=== PATIENT | male | born 1980 | race Hispanic/Latino ===

== ENCOUNTER 2017-01-01 19:32 | Emergency (ER) | payer OTHER ==
[~2017-01-01] VITALS: Ht 185.4 cm; Wt 136.4 kg
[~2017-01-01 19:32] MED LIST: CHLO473M13 MM; CLIN300C3 PO; NOMED
[2017-01-01 19:42] VITALS: BP 138/89; PULSE 102; RESP 18; O2SAT 96
[2017-01-01] MEDS ORDERED: Ketorolac 30 mg/mL 2 mL Inj IM ONE (20:20)
--- NOTE | 2017-01-01 20:24 | ED.REPORT ---
HPI-Back Pain Under 40 Date of Service Jan 01, 2017 ED Provider: Bharat Abdalla PA-C Derik is an otherwise healthy 36-year-old male with chief complaint of back pain. He states that he woke up approximately one week ago with pain in the left side of his lower back which describes as "like little knives" he reports the pain has been worsening steadily since then. He admits to diarrhea and urinary frequency but denies hematuria, dysuria. Denies vigorous exercise, trauma. Denies fever, chills, malaise, abdominal pain, vomiting, numbness/ tingling, melena. Denies saddle anesthesia, loss of bowel/bladder control. Denies immunosuppression, cancer, recent surgery, recent infection. Nursing Notes Stated Complaint: LOWER BACK PAIN Chief Complaint: Back Pain or Injury Nursing Notes Reviewed: Yes Allergies: Coded Allergies: Pork (Verified Allergy, Severe, Hives, 07/02/16) Scheduled Acetaminophen (Acetaminophen) 500 Mg/5 Ml Liquid 1,000 MG PO QID Chlorhexidine Gluconate (Chlorhexidine Gluconate) 473 Ml Mouthwash 10 ML MM BID Clindamycin HCl (Cleocin) 300 Mg Capsule 300 MG PO QID Scheduled PRN Ibuprofen (Ibuprofen) 800 Mg Tablet 800 MG PO QID PRN PRN For Pain Miscellaneous Medications No Historical Medication (No Historical Medication) Ea General Time Seen by MD: 19:58 Chief Complaint Back pain Sudden in Onset?: No Past Medical History Past Medical History depression PTSD anxiety Prior visit for foreign body in ear Past Surgical History perirectal abscess Smoking History Current Every Day Smoker Social History Alcohol Use: 1-3 per week Drug Use: Denies drug use Other Social History: Local resident Ambulatory Status Independent Review of Systems General: Denies fever, chills, malaise. HEENT: Denies congestion, headache, sore throat. Respiratory: Denies dyspnea, cough, shortness of breath, wheezing. Cardiovascular: Denies chest pain, palpitations. Gastrointestinal: Admits diarrhea, Denies vomiting, abdominal pain. Genitourinary: Admits frequency, denies urgency, dysuria, hematuria. Otherwise as noted in HPI. Physical Exam General: Well appearing, well developed, obese, no acute distress. Head: Atraumatic, normocephalic. Eyes: No scleral icterus or injection. No discharge. Vision grossly intact. ENT: Voice clear, hearing grossly intact. Respiratory: Regular rate and rhythm. Breath sounds present, clear to auscultation and equal bilaterally. Cardiovascular: Regular rate and rhythm, without murmur, gallop or rub. No pedal edema. Gastrointestinal: Obese flat and non-tender without guarding or rebound. Bowel sounds normoactive. Skin: Warm and dry. Back: Normal to inspection, mild left-sided CVA tenderness. Neurological: Normal gait, toe walk, heel walk, Romberg. Hip flexion, knee extension, ankle dorsiflexion and plantarflexion strength 5/5 B/L. Patellar and Achilles reflexes equal B/L. Sensation to sharp touch intact at medial leg, dorsal foot and lateral foot B/L. negative straight leg raise, negative cross straight leg raise. Psychological: Alert and oriented. Speech appropriate, linear and logical. Behavior appropriate. Initial Vital Signs Vital Signs (First) Date Time Temp Pulse Resp B/P Pulse Ox O2 Delivery O2 Flow Rate FiO2 01/01/17 19:42 37.1 102 18 138/89 96 Room Air Initial VS: Reviewed, Vital signs normal Interpretation & Diagnostics Lab Results Interpretation Test 01/01/17 20:47 Urine Color Yellow (YELLOW) Urine Appearance Clear (CLEAR,HAZY) Urine pH 6.0 (5.0-8.0) Urine Specific [place] 1.025 (1.003-1.035) Urine Protein Negativemg/dL (NEG,TRACE) Urine Glucose (UA) Negativemg/dL (NEGATIVE) Urine Ketones Negativemg/dL (NEGATIVE) Urine Occult Blood Negative (NEGATIVE) Urine Nitrite Negative (NEGATIVE) Urine Bilirubin Negative (NEGATIVE) Urine Urobilinogen 1.0mg/dL (NORMAL) Urine Leukocyte Esterase Negative (NEGATIVE) Urine RBC 0-2/hpf (0-2) Urine WBC 0-5/hpf (0-5) Urine Epithelial Cells None/hpf (NONE-MOD) Urine Crystals None seen (NONE SEEN) Urine Bacteria None/hpf (NONE-FEW) Urine Hyaline Casts None/lpf (NONE) Urine Granular Casts None seen (NONE SEEN) Urine Waxy Casts None seen (NONE SEEN) Urine Red Blood Cell Casts None seen (NONE SEEN) Urine White Blood Cell Casts None seen (NONE SEEN) Urine Mucus None seen (None Seen) Urine Trichomonas None seen (NONE SEEN) Urine Yeast None (NONE SEEN) Urinalysis Comment None Urine Culture Reflexed Not indicated Urinalysis Interpretation Urinalys reviewed and NL Re-Eval/Medical Decision Med Decision/Clinical Course Otherwise healthy 36-year-old male with chief complaint of one-week history of left lower back pain. He first notices pain when woke up 1 week ago and reports his been steadily worsening since. Describes the pain as "like little knives" History and physical are reassuring that this is unlikely to be an epidural abscess, cancer, cauda equina, abdominal aortic aneurysm. Patient reports no history of trauma. Neurological exam is normal. I considered the possibility of pyelonephritis, but urinalysis is normal. I believe this is musculoskeletal back pain. Discussed the case with Dr. Rivera. I advised [id number] analgesia, primary care follow-up and gave strict return instructions. Discharge & Departure Impression: Primary Impression: Low back pain Chronicity: acute Back pain laterality: left Sciatica presence: without sciatica Qualified Code: M54.5 - Low back pain Disposition: Home All VS Reviewed: Yes Condition: Stable Patient Instructions: Low Back Strain (ED) Additional Instructions: Evaluation in the emergency department for lower back pain. History and physical is highly reassuring that this is unlikely to be a dangerous condition such as swelling or infection in your spinal cord. History does not suggest that there is a possible fracture. I do not see any indication to do imaging today. I considered the possibility of a kidney infection, but urinalysis is absolutely normal. I believe this is musculoskeletal back pain. The pain is best treated with 800 mg of ibuprofen (Advil, Motrin) every 6 hours, or 1000 mg of acetaminophen (Tylenol) every 6 hours. These drugs can be taken at the same time for more severe pain. I will write you a prescription for these. Rest and apply warm compresses to your back periodically. If your pain persists for more than another week or so, please follow up with your primary care provider for further investigation. Return to emergency department for new or worsening symptoms including numbness or tingling in legs, loss of bowel/bladder control, new tingling or weakness in her legs. Referrals: Sharmin Bonilla MD (PCP) EDSupervising Provider for APC: Jesus Manuel Rivera MD copies to: Sharmin Bonilla MD, Seth PA-C Jan 01, 2017 20:24
[2017-01-01 21:29] LABS: APPEARANCE,URINE CLEAR (CLEAR,HAZY); COLOR,URINE YELLOW (YELLOW)
[2017-01-01 21:30] LABS: OCCULT BLOOD,URINE NEGATIVE (NEGATIVE)
[2017-01-01] MEDS ORDERED: ACET500L27 PO (21:47)
[2017-01-01] MEDS ORDERED: IBUP800T28 PO (21:47)
[2017-01-01 21:52] VITALS: BP 129/86; PULSE 95; RESP 20; O2SAT 97
[2017-01-01 21:53] VITALS: BP 129/86; PULSE 95; RESP 16; O2SAT 97
== END 2017-01-01 21:53 | disposition home or self-care (01) ==
LOC: SED 19:32
DX: M54.5 Low back pain (principal); R19.7 Diarrhea, unspecified; R35.0 Frequency of micturition; F17.200 Nicotine dependence, unspecified, uncomplicated; Z91.018 Allergy to other foods
CPT/HCPCS: 81000; 96372; 99284; J1885

== ENCOUNTER 2017-01-09 12:18 | Emergency (ER) | payer OTHER ==
[~2017-01-09 12:18] MED LIST changes: +ACET500L27 PO; +IBUP800T28 PO
[2017-01-09 12:19] VITALS: BP 134/94; PULSE 111; RESP 10; O2SAT 97
--- NOTE | 2017-01-09 14:44 | ED.REPORT ---
HPI-Abd Pain M Under 40 Date of Service Jan 09, 2017 ED Provider: Jones Ramirez MD A 36 year old male with a history of smoking, depression, and anxiety presents to the ED complaining of abnormal bruising. The pt noticed a significant bruise on the right side of his abdomen. He denies any trauma to the area and is unaware of any possible cause for the bleeding. The pt was seen for back pain several days ago and given ibuprofen. He has been taking this since. Nursing Notes Stated Complaint: BRUISE TO STOMACH Chief Complaint: Male Abdominal Pain Nursing Notes Reviewed: Yes Allergies: Coded Allergies: Pork (Verified Allergy, Severe, Hives, 07/02/16) Scheduled Acetaminophen (Acetaminophen) 500 Mg/5 Ml Liquid 1,000 MG PO QID Chlorhexidine Gluconate (Chlorhexidine Gluconate) 473 Ml Mouthwash 10 ML MM BID Clindamycin HCl (Cleocin) 300 Mg Capsule 300 MG PO QID Scheduled PRN Ibuprofen (Ibuprofen) 800 Mg Tablet 800 MG PO QID PRN PRN For Pain Miscellaneous Medications No Historical Medication (No Historical Medication) Ea General Time Seen by MD: 14:29 Chief Complaint Other (Bruising) Hx Obtained From: Patient Arrived By: Walk-in Sudden in Onset?: No Onset Occurred: 1 day ago Symptom Duration: Since onset Recent Healthcare: No recent hospitalization, Recent doctor visit Similar Sx Previous: No Past Medical History Past Medical History depression PTSD anxiety Prior visit for foreign body in ear Past Surgical History perirectal abscess Smoking History Current Every Day Smoker Social History Alcohol Use: 1-3 per week Drug Use: Denies drug use Other Social History: Local resident Ambulatory Status Independent Review of Systems Constitutional: Denies: Fever Respiratory: Denies: Non-productive cough, Shortness of breath Cardiovascular: Denies: Chest pain GI: Denies: Nausea, Vomiting Musculoskeletal: Denies: Back pain Complete sys rev & neg: except as marked. Skin: Reports Bruising Physical Exam Initial Vital Signs Vital Signs (First) Date Time Temp Pulse Resp B/P Pulse Ox O2 Delivery O2 Flow Rate FiO2 01/09/17 12:19 36.8 111 10 134/94 97 Room Air Initial VS: Reviewed General/Constitutional: Awake, Alert Respiratory / Chest: Atraumatic, Breath sounds NL, Breath sounds = bilat, No respiratory distress Cardiovascular: Heart rate NL, Regular rhythm, Heart sounds NL, No murmurs Abdomen: Atraumatic, Soft, Non-tender Back: Atraumatic, Full range of motion Head / Eyes: Atraumatic, Normocephalic, PERRL, EOMI ENT: Atraumatic, Airway patent, Mucous membranes moist Neurologic: Oriented X3, Speech NL, No motor deficits, No sensory deficits Neck: Atraumatic, Supple, Full range of motion Upper Extremity / MS: Atraumatic, Full range of motion Lower Extremity / Pelvis / MS: Atraumatic, Full range of motion Skin: Atraumatic, Color NL, Warm, Dry 4 cm x 2 cm subacute contusion over RLQ no active bleeding Psychiatric: Affect NL, Mood NL Re-Eval/Medical Decision Med Decision/Clinical Course 36-year-old male presenting to putting a bruise to right lower abdomen. He does not report any trauma. He denies any history of bleeding problems in the past. He reports he did start ibuprofen recently. He does have a bruise to his right lower abdomen. No other bruises. Does appear subacute. I discussed with patient that we may obtain labs but he prefers to follow-up with his primary doctor. I do not think this is unreasonable. Return precautions given for any worsening bruising, bleeding, any other neuro worsening symptoms. Re-Evaluation/Progress : Time of Eval: 14:29 Patient Status: Condition improved Re-Evaluation/Progress Note: Pt informed of the diagnosis and plan for discharge during the initial interview. The pt understands and agrees with the plan. All questions are addressed at this time. Patient Discharge & Departure Primary Impression: Bruise Disposition: Home Discharge Condition All VS Reviewed: Yes Condition: Stable Patient Instructions: Contusions in Adults (ED) Additional Instructions: There is not likely a dangerous cause for the bruising. Stop taking the ibuprofen and follow up with your primary care physician in the next few days for further evaluation. Return to the ED if you develop any new or worsening symptoms including worsening bruising or abdominal pain. Referrals: Sharmin Bonilla MD (PCP) Scribe Attestation Portions of this note were transcribed by Greg Cosby I, Dr. Ramirez personally performed the history, physical exam and medical decision-making; I reviewed and confirmed the accuracy of the information in the transcribed note. Signed by: Kirk Vasquez, 01/09/17 and 15:55. copies to: Sharmin Bonilla MD, Ben M MD Jan 09, 2017 14:44 GREG COSBY Jan 09, 2017 14:49
[2017-01-09 15:33] VITALS: BP 122/87; PULSE 88; O2SAT 97
== END 2017-01-09 15:01 | disposition home or self-care (01) ==
LOC: SED 12:18
DX: S30.811A Abrasion of abdominal wall, initial encounter (principal); X58.XXXA Exposure to other specified factors, initial encounter; Y93.9 Activity, unspecified; Y92.9 Unspecified place or not applicable; Y99.9 Unspecified external cause status; F17.200 Nicotine dependence, unspecified, uncomplicated

== ENCOUNTER 2017-02-28 01:53 | Day surgery (SDC) | payer OTHER ==
[~2017-02-28] VITALS: Ht 185.4 cm; Wt 136.0 kg
[2017-02-28] MEDS ORDERED: 0.9% Sodium Chloride 1,000 ML IV SCH (06:00)
[2017-02-28] MEDS ORDERED: fentaNYL-PF 50 mCg/mL 2 mL Inj IVPUSH PRN (06:00)
[2017-02-28] MEDS ORDERED: Sodium Chloride LOK Flush 10 mL Syringe IV PRN (06:00)
[2017-02-28 13:26] VITALS: BP 144/98; PULSE 93; RESP 18; O2SAT 96
[2017-02-28 14:55] VITALS: BP 135/82; PULSE 86; RESP 16; O2SAT 96
[2017-02-28 15:05] VITALS: BP 137/85; PULSE 85; RESP 16; O2SAT 97
[2017-02-28 15:09] VITALS: BP 146/90; PULSE 89; RESP 16; O2SAT 96
--- NOTE | 2017-03-01 | ENDO ---
[address] [address] ENDOSCOPY PROCEDURE PATIENT: KAREN HANLEY I : 1980 MR#: [id number] ADMIT: 02/28/2017 JOB ID: [id number] DATE OF PROCEDURE: 02/28/2017 PRIMARY PROVIDER: Jas Jacobson MD. PROCEDURE: Colonoscopy. INDICATIONS: A 36-year-old male with intermittent rectal bleeding and a tendency toward incomplete evacuation/constipation. EQUIPMENT: [employer]. SEDATION: 1. Versed 5 mg. 2. Fentanyl 100 mcg. COMPLICATIONS: None identified. BOWEL PREPARATION: Fair. PROCEDURE INFORMATION: After the risks and benefits were explained, written and verbal informed consent was obtained. The patient was brought into the endoscopy suite and placed into the left lateral decubitus position. Sedation was achieved as above. A digital rectal examination accomplished. No significant pathology appreciated. The scope was introduced into the rectum and advanced to the cecum as identified by the appendiceal orifice and ileocecal valve. The scope was slowly withdrawn to carefully examine the mucosa for any defects or lesions. Multiple direct views were made through the dentate line for exclusion of pathology. The colon was decompressed. The scope was removed the patient who tolerated the procedure well. FINDINGS: There was some scattered diverticulosis throughout the sigmoid. Slightly tortuous sigmoid. No significant polyps, mass lesions, or inflammatory features identified throughout. Mild internal hemorrhoids noted on direct views. ENDOSCOPIC DIAGNOSES: 1. Diverticulosis. 2. Mild internal hemorrhoids. RECOMMENDATIONS: The patient is encouraged to utilize a daily fiber supplement and followup on the results [facility]. He has not implemented the previously recommended Citrucel. I think either that or a couple of tablespoons of ground flaxseed fiber mixed in 8 ounces of water or juice once or twice daily would be useful.
== END 2017-02-28 23:59 | disposition home or self-care (01) ==
LOC: END 01:53
PROVIDERS: ATTEND Internal Medicine Gastroenterology
PROC: 0DJD8ZZ Inspection of Lower Intestinal Tract, Via Natural or Artificial Opening Endoscopic (ICD-10-PCS; principal; 2017-02-28 13:45)
DX: K57.30 Diverticulosis of large intestine without perforation or abscess without bleeding (principal); K64.8 Other hemorrhoids
CPT/HCPCS: 45378; G0500; J7030

== ENCOUNTER 2017-06-21 13:36 | Emergency (ER) | payer OTHER ==
[~2017-06-21] VITALS: Ht 185.4 cm; Wt 135.1 kg
[~2017-06-21 13:36] MED LIST changes: -ACET500L27 PO; -CHLO473M13 MM; -CLIN300C3 PO; -IBUP800T28 PO
[2017-06-21 14:02] VITALS: BP 126/88; PULSE 111; RESP 16; O2SAT 97
[2017-06-21] MEDS ORDERED: LidocaineVisc 2%:Antacid 1:1 10 mL Syringe PO SCH (15:00)
--- NOTE | 2017-06-21 15:02 | ED.REPORT ---
HPI-Abd Pain F Under 40 Date of Service Jun 21, 2017 ED Provider: Abril Deutsch History of Present Illness: 37-year-old male here for epigastric abdominal pain. Present 1 week. He had some nausea this morning but it is gone area and no vomiting or diarrhea. He had a colonoscopy a month ago and was noted to have diverticulosis. It was noted via his past records that he would have intermittent rectal bleeding and constipation as the reason for the colonoscopy. He also states she has a known history of ulcers. This pain today is sharp and constantly there but intermittently will get worse. Unknown exacerbaters. No fever. No urinary symptoms. Food does not make his pain worse. Patient is a poor historian. Nursing Notes Stated Complaint: ABD PAINS Chief Complaint: Male Abdominal Pain Allergies: Coded Allergies: Pork (Verified Allergy, Severe, Hives, 07/02/16) No Known Allergies (Verified Allergy, Unknown, 02/25/17) Scheduled Pantoprazole DR (Protonix) 40 Mg Tablet 40 MG PO DAILY Miscellaneous Medications No Historical Medication (No Historical Medication) Ea General Time Seen by MD: 14:33 Chief Complaint Abdominal pain Hx Obtained From: Patient Arrived By: Walk-in Onset Occurred: 1 week ago Symptom Duration: Intermittent Progression since Onset: Unchanged Location: : Epigastric Quality: Sharp Severity: Current: Moderate Severity: Maximum: Moderate Recent Healthcare: Recent doctor visit Similar Sx Previous: Yes Past Medical History Past Medical History depression PTSD anxiety Prior visit for foreign body in ear gastric Ulcer diverticulosis rectal bleeding Past Surgical History perirectal abscess Smoking History Current Every Day Smoker Social History Alcohol Use: 1-3 per week Drug Use: Denies drug use Other Social History: Local resident Ambulatory Status Independent Review of Systems Basic Review of Systems Eyes: Vision NL, No discharge ENT: Hearing NL, No pain, No nasal congestion, No pharyngeal pain Neurologic: NL mental status, No weakness, No numbness Psychiatric: Normal thought content Constitutional: Denies: Chills, Fatigue, Fever Respiratory: Denies: Dyspnea on exertion, Non-productive cough Cardiovascular: Denies: Chest pain, Edema GI: Reports: Abdominal pain, Nausea, Denies: Diarrhea, Vomiting Female: Denies: Dysuria Complete sys rev & neg: except as marked. Physical Exam Initial Vital Signs Vital Signs (First) Date Time Temp Pulse Resp B/P Pulse Ox O2 Delivery O2 Flow Rate FiO2 06/21/17 14:02 36.8 111 16 126/88 97 Room Air Initial VS: Reviewed, Vital signs normal General/Constitutional: Awake, Alert, No acute distress, Well appearing Respiratory / Chest: Breath sounds NL, Breath sounds = bilat, No respiratory distress, No rales, No rhonchi, No wheezing Cardiovascular: Heart rate NL, Regular rhythm, Heart sounds NL, Peripheral circulation NL Abdomen: Atraumatic, Soft, McBurney's non-tender, No guarding, No rebound, BS normoactive, No distention, No hernia, No palpable mass, No pulsatile mass Tenderness/Guarding/Rebound: Positive: Tender epigastric Abdomen obese Back: Inspection NL, Non-tender, No CVA tenderness Head / Eyes: Normocephalic, PERRL Skin: Atraumatic, Color NL, No rash Interpretation & Diagnostics Lab Results Interpretation Result Diagram: 06/21/17 1513 06/21/17 1513 Test 06/21/17 15:13 White Blood Count 6.9th/mm3 (3.8-10.1) Red Blood Count 5.19mil/mm3 (4.40-5.80) Hemoglobin 15.6g/dL (13.8-17.2) Hematocrit 46.0% (41.0-50.0) Mean Corpuscular Volume 88.6fL (81-100) Mean Corpuscular Hemoglobin 30.1pg (27.0-35.0) Mean Corpuscular Hemoglobin Concent 33.9% (32.0-37.0) Red Cell Distribution Width 14.1% (12.3-15.4) Platelet Count 124bil/L (150-400) Neutrophils (%) (Auto) 57.8% (40-74) Lymphocytes (%) (Auto) 31.7% (14-46) Monocytes (%) (Auto) 7.6% (4-12) Eosinophils (%) (Auto) 2.2% (0-5) Basophils (%) (Auto) 0.6% (0-3) Sodium Level 139mEq/L (134-144) Potassium Level 3.8mEq/L (3.5-5.2) Chloride Level 104mEq/L (97-108) Carbon Dioxide Level 21mmol/L (18-29) Blood Urea Nitrogen 13mg/dL (6-20) Creatinine 0.82mg/dL (0.76-1.27) Estimat Glomerular Filtration Rate 112mL/min (>59) Glucose Level 107mg/dL (60-99) Calcium Level 9.0mg/dL (8.5-10.1) Total Bilirubin 0.5mg/dL (0.0-1.2) Aspartate Amino Transf (AST/SGOT) 15U/L (0-50) Alanine Aminotransferase (ALT/SGPT) 14U/L (0-44) Alkaline Phosphatase 88U/L (25-150) Total Protein 7.6g/dL (6.4-8.4) Albumin 4.0g/dL (3.4-5.0) Lipase 29U/L (13-60) Hold Morales Top Tube Received (Received) Re-Eval/Medical Decision Med Decision/Clinical Course Med Decision/Clinical Course: normal US Patient slightly relieved after taking GI cocktail. Will treat for GERD and have patient follow up ECP. Discharge & Departure Shift Change Sign-Out Laboratory Evaluation: Lab evaluation discussed Procedures: Results discussed Primary Impression: GERD (gastroesophageal reflux disease) Esophagitis presence: esophagitis presence not specified Qualified Code: K21.9 - Gastro-esophageal reflux disease without esophagitis Disposition: Home Discharge Condition All VS Reviewed: Yes Condition: Stable Patient Instructions: Acute Abdominal Pain (ED), Gastritis (ED) Additional Instructions: Take the prescription for your abdominal pain as directed. Follow-up with your PCP later this week for further care. Your will labs and ultrasound were normal, it is likely your stomach causing your pain, the stomach medication should help with this. Light diet as tolerated, low fat, low spice. Small meals throughout the day and do not eat too close to bedtime. Return if he gets fevers, worsening pain, diarrhea or any other severe symptoms Referrals: Sharmin Bonilla MD (PCP) EDSupervising Provider for APC: Jesus Manuel Rivera MD copies to: Sharmin Bonilla MD, Linnea K ARNP Jun 21, 2017 15:02
[2017-06-21 15:26] LABS: BASOPHILS % (AUTO) 0.6 % (0-3); EOSINOPHILS % (AUTO) 2.2 % (0-5); MONOCYTES % (AUTO) 7.6 % (4-12); Mean Corpuscular Hemoglobin 30.1 pg (27.0-35.0); Mean Corpuscular Volume 88.6 fL (81-100); NEUTROPHILS % (AUTO) 57.8 % (40-74); Platelet Count 124 bil/L (150-400)
[2017-06-21] MEDS ORDERED: LidocaineVisc 2%:Antacid 1:1 10 mL Syringe PO ONE (15:52)
[2017-06-21] MEDS ORDERED: PANT40TA2 PO (16:28)
[2017-06-21 16:51] VITALS: BP 126/90; PULSE 80; RESP 16; O2SAT 95
--- NOTE | 2017-06-21 21:11 | DRSVH ---
PROCEDURE: US ABDOMEN INDICATIONS: epigastric pain TECHNIQUE: Real-time scanning was performed of the abdominal and retroperitoneal organs, with image documentatio n. COMPARISON: CT, ABDOMEN W/O CONTRAST, 12/25/2006, 14:46. FINDINGS: Liver length: 23.69 cm Gallbladder Wall Thickness: 3.50 mm CBD: 3.90 mm Spleen length: 10.94 cm Right kidney length: 10.86 cm Left kidney length: 12.51 cm Aorta(Proximal): 2.89 cm Aorta(Mid): 2.30 cm Aorta(Distal): 1.48 cm Liver: Liver is diffusely increased in echogenicity. No focal hepatic abnormalities identified. No rmal hepatic size. Gallbladder: Gallbladder is contracted and suboptimally visualized. Biliary ducts: Intrahepatic bile ducts are non-dilated. Extrahepatic bile duct caliber is normal. Normal is 6-7 mm or less in diameter, or 10 mm or less post-cholecystectomy. Pancreas: Not well-seen. Spleen: Spleen is normal in size and homogeneous in echotexture. Kidneys: Kidneys are normal in size and echotexture. No hydronephrosis or nephrolithiasis. No valentine d masses. Aorta: Visualized aorta is normal in caliber at less than 3 cm. Iliacs: Proximal common iliac arteries are normal in caliber at less than 2.5 cm. IVC: Not well-seen. Miscellaneous: No free abdominal fluid. IMPRESSION: 1. Increased hepatic echogenicity noted likely related to fatty infiltration of the liver but other s ources of hepatocellular disease cannot be excluded. Recommend clinical correlation. 2. Patient is not n.p.o. the gallbladder is contracted and suboptimally visualized. If indicated kaur ited repeat evaluation the gallbladder could be performed. Dictated by: Diogo Trevino Levar Interpreted: Gregory Oquendo MD on 06/21/2017 at 16:50 Approved by: Gregory Oquendo M.D. on 06/21/2017 at 21:09
== END 2017-06-21 16:52 | disposition home or self-care (01) ==
LOC: SED 13:36
DX: K21.9 Gastro-esophageal reflux disease without esophagitis (principal); K57.90 Diverticulosis of intestine, part unspecified, without perforation or abscess without bleeding; Z87.11 Personal history of peptic ulcer disease; F17.200 Nicotine dependence, unspecified, uncomplicated; Z91.018 Allergy to other foods